=== PATIENT | female | born 1945 | race Caucasian/White ===

== ENCOUNTER 2020-05-04 13:00 | Observation (INO) ==
[2020-05-04] MEDS ORDERED: Aspirin 81 MG TAB.CHEW PO ONE (13:05)
[2020-05-04 13:15] LABS: Hematocrit 33.3 % (35.3-44.9); Hemoglobin 10.6 g/dL (11.5-15.4); Mean Corpuscular HGB Conc 31.8 g/dL (31.6-35.5); Mean Corpuscular Hemoglobin 27.5 pg (28.0-33.3); Mean Corpuscular Volume 86.3 fL (83.0-100.0); Mean Platelet Volume 9.9 fL (9.4-12.4); Platelet Count 382 K/mcL (140-400); Red Blood Count 3.86 M/mcL (3.82-4.97); Red Cell Distribution Width 14.9 % (11.5-14.5); White Blood Count 7.8 K/mcL (4.3-11.1)
[2020-05-04 13:29] LABS: Prothrombin Time 11.2 Seconds (9.4-12.1)
[2020-05-04] MEDS ORDERED: Isovue-370 500 ML BOTTLE IVP ONE (13:30)
[2020-05-04 13:31] LABS: Activated Partial Thrombo Time 31.2 Seconds (26.0-36.0)
[2020-05-04 13:32] LABS: BUN/Creatinine Ratio 20 (6-26); Blood Urea Nitrogen 23 mg/dL (8-23); Calcium 10.6 mg/dL (8.6-10.3); Carbon Dioxide 25 mEq/L (23-29); Chloride 105 mEq/L (98-107); Glucose 151 mg/dL (70-105); Osmolality,Calculated 291 (280-300); Potassium 4.1 mEq/L (3.5-5.1); Sodium 137 mEq/L (136-145); eGFR For African Americans 56 (> 60); eGFR For Non-African Americans 46 (> 60)
[2020-05-04 13:33] LABS: Troponin I < 0.03 ng/mL (< 0.04)
[2020-05-04] MEDS ORDERED: Ondansetron 4 MG/2 ML VIAL IVP ONE (13:35)
[2020-05-04] MEDS ORDERED: Ondansetron 4 MG/2 ML VIAL ONE (13:38)
[2020-05-04 14:54] LABS: Bilirubin,Urine Negative (Negative); Blood,Urine Negative (Negative); Clarity,Urine Clear (Clear); Color,Urine Colorless (Yellow); Glucose,Urine (UA) Normal (Normal); Ketones,Urine Negative (Negative); Leukocyte Esterase,Urine Negative (Negative); Nitrite,Urine Negative (Negative); PH,Urine 7.5 pH Units (5.0-8.0); Protein,Urine 30 mg/dL (Neg-Trace); Specific Gravity,Urine 1.021 (1.010-1.025); Urobilinogen,Urine Normal (Normal)
[2020-05-04 14:58] LABS: Squamous Epithelial Cell,Urine Present per hpf (None-Few)
[2020-05-04] MEDS ORDERED: Perflutren Lipid Microsphere 1.3 ML in 0.9 % Sodium Chloride 8.7 ML IVP PRN (16:46)
[2020-05-04] MEDS ORDERED: *HR* Promethazine 25 MG/ML VIAL IVP PRN (16:46)
[2020-05-04] MEDS ORDERED: Acetaminophen 325 MG TABLET PO PRN (16:46)
[2020-05-04] MEDS ORDERED: D5% in Water 1,000 ML IVC PRN (17:29)
[2020-05-04] MEDS ORDERED: *HR* Dextrose 50 % in Water (Vial) 50 ML VIAL IVP PRN (17:29)
[2020-05-04] MEDS ORDERED: Dextrose Gel 15 GM/37.5 ML TUBE PO PRN ×2 (17:29)
[2020-05-04] MEDS: Insulin LISPRO 300 UNITS/3 ML VIAL SQ SCH (17:49)
[2020-05-04] MEDS ORDERED: Insulin LISPRO 300 UNITS/3 ML VIAL SQ SCH (21:00)
[2020-05-04] MEDS: *HR* Heparin 5,000 UNIT/ML VIAL SQ SCH (21:56)
[2020-05-05 02:11] LABS: Hematocrit 30.7 % (35.3-44.9); Hemoglobin 9.9 g/dL (11.5-15.4); Mean Corpuscular HGB Conc 32.2 g/dL (31.6-35.5); Mean Corpuscular Hemoglobin 27.2 pg (28.0-33.3); Mean Corpuscular Volume 84.3 fL (83.0-100.0); Mean Platelet Volume 10.2 fL (9.4-12.4); Platelet Count 374 K/mcL (140-400); Red Blood Count 3.64 M/mcL (3.82-4.97); Red Cell Distribution Width 14.8 % (11.5-14.5); White Blood Count 8.7 K/mcL (4.3-11.1)
[2020-05-05 02:21] LABS: Prothrombin Time 11.4 Seconds (9.4-12.1)
[2020-05-05 02:44] LABS: Chol/HDL Ratio 2.6 (0-4.9)
[2020-05-05 02:46] LABS: BUN/Creatinine Ratio 21 (6-26); Blood Urea Nitrogen 19 mg/dL (8-23); Calcium 10.2 mg/dL (8.6-10.3); Carbon Dioxide 24 mEq/L (23-29); Chloride 105 mEq/L (98-107); Glucose 97 mg/dL (70-105); Osmolality,Calculated 286 (280-300); Potassium 3.4 mEq/L (3.5-5.1); Sodium 137 mEq/L (136-145); eGFR For African Americans > 60 (> 60); eGFR For Non-African Americans 59 (> 60)
[2020-05-05] MEDS: *HR* Heparin 5,000 UNIT/ML VIAL SQ SCH ×2 (05:55→15:08)
[2020-05-05 07:10] LABS: Estimated Average Glucose 137 mg/dl
[2020-05-05] MEDS: Insulin LISPRO 300 UNITS/3 ML VIAL SQ SCH ×3 (07:59→16:20)
[2020-05-05] MEDS ORDERED: Aspirin Enteric Coated 81 MG Tablet PO SCH (09:00)
[2020-05-05 15:06] VITALS: BP 167/77
== END 2020-05-05 18:43 | disposition home or self-care (01) ==
LOC: 3BNU 13:00 → EMEROOARM 13:00 → 3BNU 16:50
PROVIDERS: ADMIT Pharmacist; ATTEND Pharmacist

== ENCOUNTER 2020-05-29 18:04 | Inpatient (IN) ==
[2020-05-29] MEDS ORDERED: Isovue-370 500 ML BOTTLE IVP ONE (18:38)
[2020-05-29 19:16] LABS: Hematocrit 29.4 % (35.3-44.9); Hemoglobin 9.4 g/dL (11.5-15.4); Mean Corpuscular Hemoglobin 28.1 pg (28.0-33.3); Mean Corpuscular Volume 87.8 fL (83.0-100.0); Platelet Count 384 K/mcL (140-400); Red Blood Count 3.35 M/mcL (3.82-4.97); Red Cell Distribution Width 15.4 % (11.5-14.5); White Blood Count 8.8 K/mcL (4.3-11.1)
[2020-05-29 19:24] LABS: Prothrombin Time 11.3 Seconds (9.4-12.1)
[2020-05-29 19:27] LABS: Activated Partial Thrombo Time 29.5 Seconds (26.0-36.0)
[2020-05-29 19:41] LABS: BUN/Creatinine Ratio 15 (6-26); Blood Urea Nitrogen 15 mg/dL (8-23); Calcium 10.5 mg/dL (8.6-10.3); Carbon Dioxide 24 mEq/L (23-29); Chloride 108 mEq/L (98-107); Glucose 134 mg/dL (70-105); Osmolality,Calculated 291 (280-300); Potassium 4.2 mEq/L (3.5-5.1); Sodium 139 mEq/L (136-145); Troponin I < 0.03 ng/mL (< 0.04); eGFR For African Americans > 60 (> 60); eGFR For Non-African Americans 55 (> 60)
[2020-05-29 20:02] LABS: Bacteria,Urine Few per hpf (None-Few); Bilirubin,Urine Negative (Negative); Blood,Urine Negative (Negative); Clarity,Urine Clear (Clear); Color,Urine Colorless (Yellow); Glucose,Urine (UA) Normal (Normal); Ketones,Urine Negative (Negative); Leukocyte Esterase,Urine Negative (Negative); Mucus,Urine Few per lpf (None-Few); Nitrite,Urine Negative (Negative); PH,Urine 7.5 pH Units (5.0-8.0); Protein,Urine 50 mg/dL (Neg-Trace); RBC,Urine 0-3 per hpf (0-3); Specific Gravity,Urine 1.026 (1.010-1.025); Squamous Epithelial Cell,Urine Few per hpf (None-Few); Urobilinogen,Urine Normal (Normal); WBC,Urine 0-3 per hpf (0-3)
[2020-05-29] MEDS ORDERED: Aspirin 325 MG TABLET PO ONE (20:38)
[2020-05-29] MEDS ORDERED: Naloxone 0.4 MG/ML INJ IVP PRN (23:15)
[2020-05-29] MEDS ORDERED: Ondansetron ODT 4 MG TAB.RAPDIS SL PRN (23:15)
[2020-05-30] MEDS: *HR* Heparin 5,000 UNIT/ML VIAL SQ SCH ×3 (05:30→20:57)
[2020-05-30] MEDS ORDERED: *HR* Heparin 5,000 UNIT/ML VIAL SQ SCH (06:00)
[2020-05-30] MEDS: Aspirin Enteric Coated 81 MG Tablet PO SCH (08:19)
[2020-05-30] MEDS: amLODIPine 5 MG TABLET PO SCH (10:08)
[2020-05-30] MEDS ORDERED: Dextrose Gel 15 GM/37.5 ML TUBE PO PRN ×2 (11:22)
[2020-05-30] MEDS ORDERED: D5% in Water 1,000 ML IVC PRN (11:22)
[2020-05-30] MEDS ORDERED: *HR* Dextrose 50 % in Water (Vial) 50 ML VIAL IVP PRN (11:22)
[2020-05-30] MEDS: Insulin LISPRO 300 UNITS/3 ML VIAL SQ SCH ×2 (12:06→16:51)
[2020-05-30 18:22] LABS: Adenovirus Not Detected (Not Detect); Bordetella Pertussis Not Detected (Not Detect); Chlamydophila pneumoniae Not Detected (Not Detect); Coronavirus 229E Not Detected (Not Detect); Coronavirus HKU1 Not Detected (Not Detect); Coronavirus NL63 Not Detected (Not Detect); Coronavirus OC43 Not Detected (Not Detect); Human Metapneumovirus Not Detected (Not Detect); Human Rhinovirus/Enterovirus Not Detected (Not Detect); Influenza A Subtype 2009 H1 Not Detected (Not Detect); Influenza B Not Detected (Not Detect); Mycoplasma pneumoniae Not Detected (Not Detect); Parainfluenza Virus 1 Not Detected (Not Detect); Parainfluenza Virus 2 Not Detected (Not Detect); Parainfluenza Virus 3 Not Detected (Not Detect); Parainfluenza Virus 4 Not Detected (Not Detect); Respiratory Syncytial Virus Not Detected (Not Detect); SARS-CoV-2 Not Detected (Not Detect)
[2020-05-30] MEDS ORDERED: Insulin LISPRO 300 UNITS/3 ML VIAL SQ SCH (21:00)
[2020-05-31] MEDS: *HR* Heparin 5,000 UNIT/ML VIAL SQ SCH (04:00)
[2020-05-31] MEDS: Insulin LISPRO 300 UNITS/3 ML VIAL SQ SCH ×2 (07:57→13:46)
[2020-05-31] MEDS ORDERED: Lidocaine Viscous Oral Soln 15 ML SOLUTION MM PRN (10:47)
[2020-05-31] MEDS ORDERED: *HR* FentaNYL (PF) 100 MCG/2 ML VIAL IVP PRN (10:47)
[2020-05-31] MEDS ORDERED: 0.9 % Sodium Chloride 500 ML IVC ONE (10:48)
[2020-05-31] MEDS: *HR* Midazolam HCl 5 MG/5 ML VIAL IVP PRN ×2 (11:30→11:35)
[2020-05-31] MEDS: Aspirin Enteric Coated 81 MG Tablet PO SCH (12:44)
[2020-05-31] MEDS: amLODIPine 5 MG TABLET PO SCH (12:44)
[2020-05-31 13:59] VITALS: BP 148/82
== END 2020-05-31 15:34 | disposition home health service (06) | DRG 65 ==
LOC: EMEROOARM 18:04 → 3BNU 18:04 → SUATTDRO 21:41 → 3BNU 22:30
PROVIDERS: ADMIT Internal Medicine; ATTEND Internal Medicine

== ENCOUNTER 2020-06-07 14:52 | Observation (INO) ==
[2020-06-07 15:16] LABS: Hematocrit 30.2 % (35.3-44.9); Hemoglobin 9.9 g/dL (11.5-15.4); Mean Corpuscular HGB Conc 32.8 g/dL (31.6-35.5); Mean Corpuscular Volume 85.3 fL (83.0-100.0); Mean Platelet Volume 10.1 fL (9.4-12.4); Platelet Count 426 K/mcL (140-400); Red Blood Count 3.54 M/mcL (3.82-4.97); Red Cell Distribution Width 14.6 % (11.5-14.5)
[2020-06-07 15:33] LABS: BUN/Creatinine Ratio 18 (6-26); Blood Urea Nitrogen 16 mg/dL (8-23); Carbon Dioxide 22 mEq/L (23-29); Chloride 100 mEq/L (98-107); Glucose 201 mg/dL (70-105); Osmolality,Calculated 285 (280-300); Potassium 3.2 mEq/L (3.5-5.1); Sodium 134 mEq/L (136-145); eGFR For African Americans > 60 (> 60); eGFR For Non-African Americans > 60 (> 60)
[2020-06-07 15:34] LABS: Troponin I < 0.03 ng/mL (< 0.04)
[2020-06-07 15:35] LABS: Prothrombin Time 11.7 Seconds (9.4-12.1)
[2020-06-07 15:38] LABS: Activated Partial Thrombo Time 26.4 Seconds (26.0-36.0)
[2020-06-07] MEDS ORDERED: Isovue-370 500 ML BOTTLE IVP ONE (15:39)
[2020-06-07] MEDS ORDERED: Ondansetron 4 MG/2 ML VIAL IVP PRN (16:57)
[2020-06-07] MEDS ORDERED: Naloxone 0.4 MG/ML INJ IVP PRN (16:57)
[2020-06-07] MEDS ORDERED: Furosemide 20 MG TABLET PO PRN (17:00)
[2020-06-07] MEDS ORDERED: 0.9 % Sodium Chloride 500 ML IVC ONE (17:09)
[2020-06-07] MEDS ORDERED: Dextrose Gel 15 GM/37.5 ML TUBE PO PRN ×2 (17:38)
[2020-06-07] MEDS ORDERED: *HR* Dextrose 50 % in Water (Vial) 50 ML VIAL IVP PRN (17:38)
[2020-06-07] MEDS ORDERED: D5% in Water 1,000 ML IVC PRN (17:38)
[2020-06-07 18:10] LABS: Estimated Average Glucose 117 mg/dl
[2020-06-07 18:22] LABS: Bilirubin,Urine Negative (Negative); Blood,Urine Negative (Negative); Clarity,Urine Clear (Clear); Color,Urine Light-Yellow (Yellow); Glucose,Urine (UA) Normal (Normal); Ketones,Urine Trace mg/dL (Negative); Leukocyte Esterase,Urine Negative (Negative); Mucus,Urine Few per lpf (None-Few); Nitrite,Urine Negative (Negative); Protein,Urine 100 mg/dL (Neg-Trace); Specific Gravity,Urine > 1.030 (1.010-1.025); Squamous Epithelial Cell,Urine Few per hpf (None-Few); Urobilinogen,Urine Normal (Normal)
[2020-06-07] MEDS: Potassium Chloride Elixir 20 MEQ/15 ML UDC PO SCH (20:26)
[2020-06-07] MEDS: 0.9 % Sodium Chloride 1,000 ML IVC SCH (20:26)
[2020-06-07] MEDS: cefTRIAXone 1,000 MG in Water for inj. (sterile) 10 ML IVP SCH (20:27)
[2020-06-07] MEDS: MetroNIDAZOLE 500 MG/100 ML 500 MG/100 ML BAG IVPB SCH (20:27)
[2020-06-07] MEDS: Insulin LISPRO 300 UNITS/3 ML VIAL SQ SCH (20:35)
[2020-06-07] MEDS ORDERED: Insulin LISPRO 300 UNITS/3 ML VIAL SQ SCH (21:00)
[2020-06-08] MEDS: MetroNIDAZOLE 500 MG/100 ML 500 MG/100 ML BAG IVPB SCH ×2 (01:54→09:08)
[2020-06-08] MEDS ORDERED: Potassium Chloride Elixir 20 MEQ/15 ML UDC PO SCH (02:00)
[2020-06-08 05:32] LABS: Basophils # 0.1 K/mcL (0.0-0.2); Basophils % 0.5 %; Eosinophils # 0.1 K/mcL (0.0-0.6); Eosinophils % 0.6 %; Hematocrit 25.2 % (35.3-44.9); Immature Granulocytes % 0.6 % (0-4); Lymphocytes # 1.7 K/mcL (0.6-4.6); Lymphocytes % 15.8 %; Mean Corpuscular HGB Conc 32.1 g/dL (31.6-35.5); Mean Corpuscular Hemoglobin 27.9 pg (28.0-33.3); Mean Corpuscular Volume 86.9 fL (83.0-100.0); Mean Platelet Volume 10.1 fL (9.4-12.4); Monocytes % 9.7 %; Neutrophils # 7.7 K/mcL (1.6-8.9); Platelet Count 399 K/mcL (140-400); Red Cell Distribution Width 14.7 % (11.5-14.5); Segmented Neutrophils % 72.8 %; White Blood Count 10.5 K/mcL (4.3-11.1)
[2020-06-08 05:33] LABS: Hemoglobin 8.1 g/dL (11.5-15.4)
[2020-06-08 05:59] LABS: BUN/Creatinine Ratio 16 (6-26); Blood Urea Nitrogen 14 mg/dL (8-23); Calcium 9.4 mg/dL (8.6-10.3); Carbon Dioxide 23 mEq/L (23-29); Chloride 109 mEq/L (98-107); Glucose 133 mg/dL (70-105); Magnesium 1.7 mg/dL (1.6-2.6); Osmolality,Calculated 284 (280-300); Phosphorous 2.1 mg/dL (2.7-4.5); Potassium 4.2 mEq/L (3.5-5.1); Sodium 136 mEq/L (136-145); eGFR For African Americans > 60 (> 60); eGFR For Non-African Americans > 60 (> 60)
[2020-06-08] MEDS: Potassium Chloride Elixir 20 MEQ/15 ML UDC PO SCH (07:39)
[2020-06-08] MEDS ORDERED: Aspirin Enteric Coated 81 MG Tablet PO SCH (09:00)
[2020-06-08] MEDS: Insulin LISPRO 300 UNITS/3 ML VIAL SQ SCH (09:03)
[2020-06-08] MEDS: cefTRIAXone 1,000 MG in Water for inj. (sterile) 10 ML IVP SCH (09:11)
[2020-06-08] MEDS ORDERED: lisinopriL 20 MG TABLET PO SCH (09:15)
[2020-06-08] MEDS: 0.9 % Sodium Chloride 1,000 ML IVC SCH (10:56)
[2020-06-08 11:56] VITALS: BP 150/81
== END 2020-06-08 14:34 | disposition home health service (06) ==
LOC: EMEROOARM 14:52 → 3BNU 14:52 → SUATTDRO 17:18 → 3BNU 18:10
PROVIDERS: ADMIT Internal Medicine; ATTEND Internal Medicine

== ENCOUNTER 2020-11-09 10:59 | Inpatient (IN) ==
[2020-11-09] MEDS ORDERED: Isovue-370 500 ML BOTTLE IVP ONE (11:15)
[2020-11-09 11:45] LABS: Basophils # 0.1 K/mcL (0.0-0.2); Eosinophils # 0.1 K/mcL (0.0-0.6); Hematocrit 34.5 % (35.3-44.9); Hemoglobin 11.1 g/dL (11.5-15.4); Immature Granulocytes % 0.3 % (0-4); Lymphocytes # 1.1 K/mcL (0.6-4.6); Lymphocytes % 13.7 %; Mean Corpuscular HGB Conc 32.2 g/dL (31.6-35.5); Mean Corpuscular Hemoglobin 26.9 pg (28.0-33.3); Mean Corpuscular Volume 83.7 fL (83.0-100.0); Mean Platelet Volume 10.3 fL (9.4-12.4); Monocytes # 0.4 K/mcL (0.0-1.3); Monocytes % 5.2 %; Neutrophils # 6.1 K/mcL (1.6-8.9); Platelet Count 362 K/mcL (140-400); Red Blood Count 4.12 M/mcL (3.82-4.97); Red Cell Distribution Width 15.4 % (11.5-14.5); Segmented Neutrophils % 78.8 %; White Blood Count 7.7 K/mcL (4.3-11.1)
[2020-11-09 12:09] LABS: Alanine Aminotransferase 9 Units/L (7-52); Albumin 4.3 g/dL (3.5-5.7); Albumin/Globulin Ratio 1.4 (1.1-2.2); Alkaline Phosphatase 78 Units/L (34-104); Aspartate Amino Transferase 11 Units/L (13-39); BUN/Creatinine Ratio 16 (6-26); Bilirubin,Direct 0.1 mg/dL (0.0-0.2); Bilirubin,Indirect 0.6 mg/dL (0.0-1.0); Bilirubin,Total 0.7 mg/dL (0.3-1.0); Blood Urea Nitrogen 16 mg/dL (8-23); Calcium 10.6 mg/dL (8.6-10.3); Carbon Dioxide 22 mEq/L (23-29); Chloride 109 mEq/L (98-107); Glucose 130 mg/dL (70-105); Osmolality,Calculated 291 (280-300); Potassium 3.8 mEq/L (3.5-5.1); Sodium 139 mEq/L (136-145); Total Protein 7.3 g/dL (6.4-8.9); Troponin I < 0.03 ng/mL (< 0.04); eGFR For African Americans > 60 (> 60); eGFR For Non-African Americans 55 (> 60)
[2020-11-09 13:12] LABS: Adenovirus Not Detected (Not Detect); Bordetella Pertussis Not Detected (Not Detect); Chlamydophila pneumoniae Not Detected (Not Detect); Coronavirus 229E Not Detected (Not Detect); Coronavirus HKU1 Not Detected (Not Detect); Coronavirus NL63 Not Detected (Not Detect); Coronavirus OC43 Not Detected (Not Detect); Human Metapneumovirus Not Detected (Not Detect); Human Rhinovirus/Enterovirus Not Detected (Not Detect); Influenza A Subtype 2009 H1 Not Detected (Not Detect); Influenza B Not Detected (Not Detect); Mycoplasma pneumoniae Not Detected (Not Detect); Parainfluenza Virus 1 Not Detected (Not Detect); Parainfluenza Virus 2 Not Detected (Not Detect); Parainfluenza Virus 3 Not Detected (Not Detect); Parainfluenza Virus 4 Not Detected (Not Detect); Respiratory Syncytial Virus Not Detected (Not Detect); SARS-CoV-2 Not Detected (Not Detect)
[2020-11-09] MEDS ORDERED: Aspirin 81 MG TAB.CHEW PO STA (13:33)
[2020-11-09 14:10] LABS: Bilirubin,Urine Negative (Negative); Blood,Urine Negative (Negative); Clarity,Urine Clear (Clear); Color,Urine Colorless (Yellow); Glucose,Urine (UA) Normal (Normal); Ketones,Urine Negative (Negative); Leukocyte Esterase,Urine Negative (Negative); Nitrite,Urine Negative (Negative); Protein,Urine 30 mg/dL (Neg-Trace); RBC,Urine 0-3 per hpf (0-3); Specific Gravity,Urine 1.027 (1.010-1.025); Squamous Epithelial Cell,Urine Few per hpf (None-Few); Urobilinogen,Urine Normal (Normal); WBC,Urine 0-3 per hpf (0-3)
[2020-11-09] MEDS ORDERED: MOM Conc 10 ML UD.LIQ PO PRN (15:18)
[2020-11-09] MEDS ORDERED: Ondansetron ODT 4 MG TAB.RAPDIS SL PRN (15:18)
[2020-11-09] MEDS ORDERED: Mag Hydrox/Al Hydrox/Simeth 30 ML UDC PO PRN (15:18)
[2020-11-09] MEDS ORDERED: Melatonin 3 MG TABLET PO PRN (15:18)
[2020-11-09] MEDS ORDERED: Naloxone 0.4 MG/ML INJ IVP PRN (15:18)
[2020-11-09] MEDS ORDERED: D5% in Water 1,000 ML IVC PRN (15:23)
[2020-11-09] MEDS ORDERED: Dextrose Gel 15 GM/37.5 ML TUBE PO PRN ×2 (15:23)
[2020-11-09] MEDS ORDERED: *HR* Dextrose 50 % in Water (Vial) 50 ML VIAL IVP PRN (15:23)
[2020-11-09] MEDS ORDERED: Perflutren Lipid Microsphere 1.3 ML in 0.9 % Sodium Chloride 8.7 ML IVP PRN (15:25)
[2020-11-09] MEDS: Insulin LISPRO 300 UNITS/3 ML VIAL SUBQ SCH ×2 (16:39→19:40)
[2020-11-10 06:09] LABS: Hemoglobin 10.9 g/dL (11.5-15.4); Mean Corpuscular Hemoglobin 27.6 pg (28.0-33.3); Mean Corpuscular Volume 83.5 fL (83.0-100.0); Mean Platelet Volume 10.3 fL (9.4-12.4); Platelet Count 341 K/mcL (140-400); Red Blood Count 3.95 M/mcL (3.82-4.97); Red Cell Distribution Width 15.5 % (11.5-14.5); White Blood Count 7.6 K/mcL (4.3-11.1)
[2020-11-10 06:16] LABS: Estimated Average Glucose 140 mg/dl; Hemoglobin A1C 6.5 %; Prothrombin Time 11.7 Seconds (9.4-12.1)
[2020-11-10 06:29] LABS: Alanine Aminotransferase 8 Units/L (7-52); Albumin 3.9 g/dL (3.5-5.7); Albumin/Globulin Ratio 1.4 (1.1-2.2); Alkaline Phosphatase 73 Units/L (34-104); Aspartate Amino Transferase 11 Units/L (13-39); BUN/Creatinine Ratio 20 (6-26); Bilirubin,Total 0.6 mg/dL (0.3-1.0); Blood Urea Nitrogen 18 mg/dL (8-23); Calcium 10.4 mg/dL (8.6-10.3); Carbon Dioxide 24 mEq/L (23-29); Chloride 106 mEq/L (98-107); Chol/HDL Ratio 2.1 (0-4.9); Cholesterol 143 mg/dL (< 200); Globulin 2.7 g/dL (2.4-3.5); Glucose 104 mg/dL (70-105); HDL Cholesterol 69 mg/dL (40-59); LDL Cholesterol,Calculated 59 mg/dL (< 100); Osmolality,Calculated 286 (280-300); Potassium 3.4 mEq/L (3.5-5.1); Sodium 137 mEq/L (136-145); Total Protein 6.6 g/dL (6.4-8.9); Triglycerides 74 mg/dL (< 150); Troponin I < 0.03 ng/mL (< 0.04); eGFR For African Americans > 60 (> 60); eGFR For Non-African Americans > 60 (> 60)
[2020-11-10] MEDS: Insulin LISPRO 300 UNITS/3 ML VIAL SUBQ SCH ×4 (07:14→20:29)
[2020-11-10] MEDS ORDERED: E-Z-HD (BARIUM SULF) SUSPENSION PO ONE (08:43)
[2020-11-10] MEDS ORDERED: E-Z-PAQUE (BARIUM SULF) SUSP 1 BOTTLE PO ONE (08:43)
[2020-11-10] MEDS ORDERED: Simethicone/Sodium Bic/Citr Ac 1 EACH GRAN.EF.PK PO ONE (08:43)
[2020-11-10] MEDS: Aspirin 81 MG TAB.CHEW PO SCH (13:31)
[2020-11-11] MEDS: Insulin LISPRO 300 UNITS/3 ML VIAL SUBQ SCH ×4 (08:58→19:57)
[2020-11-11] MEDS: amLODIPine 5 MG TABLET PO SCH (09:37)
[2020-11-11] MEDS: Aspirin 81 MG TAB.CHEW PO SCH (09:37)
[2020-11-11] MEDS: lisinopriL 20 MG TABLET PO SCH (09:37)
[2020-11-12] MEDS: Insulin LISPRO 300 UNITS/3 ML VIAL SUBQ SCH ×2 (07:41→11:47)
[2020-11-12] MEDS: amLODIPine 5 MG TABLET PO SCH (07:46)
[2020-11-12] MEDS: Aspirin 81 MG TAB.CHEW PO SCH (07:46)
[2020-11-12] MEDS: lisinopriL 20 MG TABLET PO SCH (07:46)
[2020-11-12 11:24] VITALS: BP 130/74
[2020-11-12 11:41] LABS: Hematocrit 31.7 % (35.3-44.9); Hemoglobin 10.4 g/dL (11.5-15.4)
== END 2020-11-12 13:33 | disposition other institution (70) | DRG 65 ==
LOC: EMEROOARM 10:59 → 3BNU 10:59 → SUATTDRO 14:11 → 3BNU 15:13
PROVIDERS: ADMIT Internal Medicine; ATTEND Registered Nurse

== ENCOUNTER 2021-01-19 15:28 | Inpatient (IN) ==
[2021-01-19 16:09] LABS: Basophils # 0.1 K/mcL (0.0-0.2); Basophils % 0.3 %; Eosinophils % 0.2 %; Hematocrit 37.6 % (35.3-44.9); Hemoglobin 11.8 g/dL (11.5-15.4); Immature Granulocytes % 0.4 % (0-4); Lymphocytes # 1.3 K/mcL (0.6-4.6); Lymphocytes % 6.9 %; Mean Corpuscular HGB Conc 31.4 g/dL (31.6-35.5); Mean Corpuscular Hemoglobin 26.9 pg (28.0-33.3); Mean Corpuscular Volume 85.8 fL (83.0-100.0); Monocytes # 0.6 K/mcL (0.0-1.3); Monocytes % 3.1 %; Neutrophils # 16.1 K/mcL (1.6-8.9); Platelet Count 601 K/mcL (140-400); Red Blood Count 4.38 M/mcL (3.82-4.97); Red Cell Distribution Width 15.1 % (11.5-14.5); Segmented Neutrophils % 89.1 %; White Blood Count 18.1 K/mcL (4.3-11.1)
[2021-01-19 16:16] LABS: INR 0.9; Prothrombin Time 10.4 Seconds (9.4-12.1)
[2021-01-19 16:18] LABS: Activated Partial Thrombo Time 26.8 Seconds (26.0-36.0)
[2021-01-19] MEDS ORDERED: 0.9 % Sodium Chloride 1,000 ML IVC ONE (16:21)
[2021-01-19 16:24] LABS: Alanine Aminotransferase 15 Units/L (7-52); Albumin 3.9 g/dL (3.5-5.7); Albumin/Globulin Ratio 1.3 (1.1-2.2); Alkaline Phosphatase 96 Units/L (34-104); Aspartate Amino Transferase 18 Units/L (13-39); BUN/Creatinine Ratio 46 (6-26); Bilirubin,Direct 0.1 mg/dL (0.0-0.2); Bilirubin,Indirect 0.5 mg/dL (0.0-1.0); Bilirubin,Total 0.6 mg/dL (0.3-1.0); Blood Urea Nitrogen 43 mg/dL (8-23); Carbon Dioxide 22 mEq/L (23-29); Chloride 105 mEq/L (98-107); Creatine Kinase 45 Units/L (30-223); Ethanol < 10 mg/dL (Less than 10); Globulin 2.9 g/dL (2.4-3.5); Glucose 172 mg/dL (70-105); Osmolality,Calculated 309 (280-300); Potassium 3.4 mEq/L (3.5-5.1); Sodium 142 mEq/L (136-145); Total Protein 6.8 g/dL (6.4-8.9); Troponin I < 0.03 ng/mL (< 0.04); eGFR For African Americans > 60 (> 60); eGFR For Non-African Americans 58 (> 60)
[2021-01-19 16:37] LABS: Thyroid Stimulating Hormone 1.054 mcIU/mL (0.340-5.600)
[2021-01-19 17:06] LABS: Amphetamine Screen,Urine Negative ng/mL (Cutoff=1000); Barbiturate Screen,Urine Negative ng/mL (Cutoff=200); Benzodiazepines Screen,Urine Negative ng/mL (Cutoff=200); Cannabinoid Screen,Urine Negative ng/mL (Cutoff = 50); Cocaine Screen,Urine Negative ng/mL (Cutoff= 300); Opiate Screen,Urine Negative ng/mL (Cutoff=300); Phencyclidine Screen,Urine Negative ng/mL (Cutoff=25)
[2021-01-19 17:06] LABS: Bilirubin,Urine Negative (Negative); Blood,Urine Large (Negative); Clarity,Urine Turbid (Clear); Color,Urine Light-Orange (Yellow); Glucose,Urine (UA) Normal (Normal); Ketones,Urine 20 mg/dL (Negative); Leukocyte Esterase,Urine Large (Negative); Nitrite,Urine Negative (Negative); Protein,Urine >=300 mg/dL (Neg-Trace); Urobilinogen,Urine Normal (Normal)
[2021-01-19 17:11] LABS: Bacteria,Urine Present per hpf (None-Few); RBC,Urine Present per hpf (0-3); Squamous Epithelial Cell,Urine Present per hpf (None-Few); WBC,Urine Present per hpf (0-3)
[2021-01-19] MEDS ORDERED: cefTRIAXone 1,000 MG in Water for inj. (sterile) 10 ML IVP ONE (17:17)
[2021-01-19] MEDS ORDERED: Naloxone 0.4 MG/ML INJ IVP PRN (21:10)
[2021-01-19] MEDS ORDERED: Melatonin 3 MG TABLET PO PRN (21:10)
[2021-01-19] MEDS ORDERED: Ondansetron 4 MG/2 ML VIAL IVP PRN (21:10)
[2021-01-19] MEDS ORDERED: Potassium Chloride 40 MEQ, Lidocaine 1% 2 ML in 0.9 % Sodium Chloride 500 ML IVPB ONE (23:18)
[2021-01-20 02:41] LABS: Basophils # 0.1 K/mcL (0.0-0.2); Basophils % 0.5 %; Eosinophils % 0.2 %; Hematocrit 30.4 % (35.3-44.9); Hemoglobin 9.8 g/dL (11.5-15.4); Immature Granulocytes % 0.4 % (0-4); Lymphocytes # 1.6 K/mcL (0.6-4.6); Lymphocytes % 11.8 %; Mean Corpuscular HGB Conc 32.2 g/dL (31.6-35.5); Mean Corpuscular Hemoglobin 27.8 pg (28.0-33.3); Mean Corpuscular Volume 86.4 fL (83.0-100.0); Mean Platelet Volume 10.3 fL (9.4-12.4); Monocytes # 0.6 K/mcL (0.0-1.3); Monocytes % 4.1 %; Neutrophils # 11.4 K/mcL (1.6-8.9); Platelet Count 516 K/mcL (140-400); Red Blood Count 3.52 M/mcL (3.82-4.97); Red Cell Distribution Width 15.4 % (11.5-14.5); White Blood Count 13.7 K/mcL (4.3-11.1)
[2021-01-20 03:03] LABS: Prothrombin Time 11.1 Seconds (9.4-12.1)
[2021-01-20 03:06] LABS: Alanine Aminotransferase 14 Units/L (7-52); Albumin 3.4 g/dL (3.5-5.7); Albumin/Globulin Ratio 1.3 (1.1-2.2); Alkaline Phosphatase 74 Units/L (34-104); Aspartate Amino Transferase 17 Units/L (13-39); BUN/Creatinine Ratio 44 (6-26); Bilirubin,Total 0.4 mg/dL (0.3-1.0); Blood Urea Nitrogen 38 mg/dL (8-23); Calcium 10.2 mg/dL (8.6-10.3); Carbon Dioxide 19 mEq/L (23-29); Chloride 111 mEq/L (98-107); Chol/HDL Ratio 2.4 (0-4.9); Cholesterol 107 mg/dL (< 200); Globulin 2.7 g/dL (2.4-3.5); Glucose 131 mg/dL (70-105); HDL Cholesterol 44 mg/dL (40-59); LDL Cholesterol,Calculated 49 mg/dL (< 100); Osmolality,Calculated 307 (280-300); Phosphorous 2.8 mg/dL (2.7-4.5); Potassium 3.4 mEq/L (3.5-5.1); Sodium 143 mEq/L (136-145); Total Protein 6.1 g/dL (6.4-8.9); Triglycerides 71 mg/dL (< 150); Troponin I < 0.03 ng/mL (< 0.04); eGFR For African Americans > 60 (> 60); eGFR For Non-African Americans > 60 (> 60)
[2021-01-20 03:12] LABS: Estimated Average Glucose 126 mg/dl
[2021-01-20] MEDS: cefTRIAXone 1,000 MG in Water for inj. (sterile) 10 ML IVP SCH (09:55)
[2021-01-20] MEDS: lisinopriL 20 MG TABLET PO SCH (09:58)
[2021-01-20] MEDS: amLODIPine 5 MG TABLET PO SCH (09:58)
[2021-01-20] MEDS: Baclofen 10 MG TABLET PO SCH ×2 (09:58→22:06)
[2021-01-20] MEDS: Aspirin 81 MG TAB.CHEW PO SCH (09:58)
[2021-01-20] MEDS: Acetaminophen 325 MG TABLET PO PRN (16:42)
[2021-01-20] MEDS ORDERED: Ketorolac 30 MG/ML VIAL IVP ONE (21:14)
[2021-01-21] MEDS: Acetaminophen 325 MG TABLET PO PRN ×2 (02:35→08:37)
[2021-01-21 03:21] LABS: Hematocrit 31.3 % (35.3-44.9); Hemoglobin 9.6 g/dL (11.5-15.4); Mean Corpuscular HGB Conc 30.7 g/dL (31.6-35.5); Mean Corpuscular Hemoglobin 27.3 pg (28.0-33.3); Mean Corpuscular Volume 88.9 fL (83.0-100.0); Mean Platelet Volume 10.4 fL (9.4-12.4); Platelet Count 467 K/mcL (140-400); Red Blood Count 3.52 M/mcL (3.82-4.97); Red Cell Distribution Width 15.7 % (11.5-14.5); White Blood Count 15.2 K/mcL (4.3-11.1)
[2021-01-21 03:45] LABS: BUN/Creatinine Ratio 42 (6-26); Blood Urea Nitrogen 37 mg/dL (8-23); Calcium 10.6 mg/dL (8.6-10.3); Carbon Dioxide 22 mEq/L (23-29); Chloride 114 mEq/L (98-107); Glucose 156 mg/dL (70-105); Osmolality,Calculated 310 (280-300); Potassium 3.3 mEq/L (3.5-5.1); Sodium 144 mEq/L (136-145); eGFR For African Americans > 60 (> 60); eGFR For Non-African Americans > 60 (> 60)
[2021-01-21] MEDS: Aspirin 81 MG TAB.CHEW PO SCH (08:36)
[2021-01-21] MEDS: amLODIPine 5 MG TABLET PO SCH (08:36)
[2021-01-21] MEDS: lisinopriL 20 MG TABLET PO SCH (08:36)
[2021-01-21] MEDS: Baclofen 10 MG TABLET PO SCH ×2 (08:36→22:16)
[2021-01-21] MEDS: cefTRIAXone 1,000 MG in Water for inj. (sterile) 10 ML IVP SCH (08:37)
[2021-01-21 15:44] LABS: Folate 5.3 ng/mL (3.0-16.0)
[2021-01-21] MEDS ORDERED: Acetaminophen IV 1,000 MG/100 ML BAG IVPB ONE (17:58)
[2021-01-21] MEDS ORDERED: 0.9 % Sodium Chloride 1,000 ML IVC SCH (18:00)
[2021-01-21] MEDS ORDERED: Ketorolac 30 MG/ML VIAL IVP ONE (20:44)
[2021-01-22 01:40] LABS: Hematocrit 31.3 % (35.3-44.9); Hemoglobin 10.1 g/dL (11.5-15.4); Mean Corpuscular HGB Conc 32.3 g/dL (31.6-35.5); Mean Corpuscular Hemoglobin 27.6 pg (28.0-33.3); Mean Corpuscular Volume 85.5 fL (83.0-100.0); Mean Platelet Volume 10.3 fL (9.4-12.4); Platelet Count 393 K/mcL (140-400); Red Blood Count 3.66 M/mcL (3.82-4.97); Red Cell Distribution Width 15.4 % (11.5-14.5); White Blood Count 10.3 K/mcL (4.3-11.1)
[2021-01-22 01:57] LABS: BUN/Creatinine Ratio 42 (6-26); Blood Urea Nitrogen 30 mg/dL (8-23); Calcium 10.2 mg/dL (8.6-10.3); Carbon Dioxide 22 mEq/L (23-29); Chloride 116 mEq/L (98-107); Glucose 113 mg/dL (70-105); Osmolality,Calculated 305 (280-300); Potassium 3.6 mEq/L (3.5-5.1); Sodium 144 mEq/L (136-145); eGFR For African Americans > 60 (> 60); eGFR For Non-African Americans > 60 (> 60)
[2021-01-22] MEDS: Acetaminophen 325 MG TABLET PO PRN ×2 (09:22→22:59)
[2021-01-22] MEDS: Aspirin 81 MG TAB.CHEW PO SCH (09:23)
[2021-01-22] MEDS: amLODIPine 5 MG TABLET PO SCH (09:24)
[2021-01-22] MEDS: lisinopriL 20 MG TABLET PO SCH (09:24)
[2021-01-22] MEDS: cefTRIAXone 1,000 MG in Water for inj. (sterile) 10 ML IVP SCH (09:24)
[2021-01-22] MEDS: Baclofen 10 MG TABLET PO SCH ×2 (09:25→22:59)
[2021-01-22] MEDS ORDERED: Ketorolac 15 MG/ML VIAL IVP ONE (12:30)
[2021-01-23] MEDS: cefTRIAXone 1,000 MG in Water for inj. (sterile) 10 ML IVP SCH (09:09)
[2021-01-23] MEDS: Aspirin 81 MG TAB.CHEW PO SCH (09:10)
[2021-01-23] MEDS: Baclofen 10 MG TABLET PO SCH ×2 (09:10→21:17)
[2021-01-23] MEDS: amLODIPine 5 MG TABLET PO SCH (09:11)
[2021-01-23] MEDS: lisinopriL 20 MG TABLET PO SCH (09:11)
[2021-01-23] MEDS: Acetaminophen 325 MG TABLET PO PRN (14:09)
[2021-01-24] MEDS: lisinopriL 20 MG TABLET PO SCH (08:53)
[2021-01-24] MEDS: amLODIPine 5 MG TABLET PO SCH (08:53)
[2021-01-24] MEDS: Aspirin 81 MG TAB.CHEW PO SCH (08:53)
[2021-01-24] MEDS: Baclofen 10 MG TABLET PO SCH ×2 (08:54→20:23)
[2021-01-25] MEDS: amLODIPine 5 MG TABLET PO SCH (09:31)
[2021-01-25] MEDS: Baclofen 10 MG TABLET PO SCH ×2 (09:31→21:43)
[2021-01-25] MEDS: Aspirin 81 MG TAB.CHEW PO SCH (09:31)
[2021-01-25] MEDS: lisinopriL 20 MG TABLET PO SCH (09:32)
[2021-01-25] MEDS ORDERED: E-Z-PAQUE (BARIUM SULF) SUSP 1 BOTTLE PO ONE (12:14)
[2021-01-25] MEDS ORDERED: E-Z-HD (BARIUM SULF) SUSPENSION PO ONE (12:14)
[2021-01-25] MEDS: Acetaminophen 325 MG TABLET PO PRN (14:27)
[2021-01-26] MEDS: Aspirin 81 MG TAB.CHEW PO SCH (10:14)
[2021-01-26] MEDS: lisinopriL 20 MG TABLET PO SCH (10:14)
[2021-01-26] MEDS: amLODIPine 5 MG TABLET PO SCH (10:15)
[2021-01-26] MEDS: Baclofen 10 MG TABLET PO SCH ×2 (10:15→20:46)
[2021-01-27] MEDS: Aspirin 81 MG TAB.CHEW PO SCH (10:02)
[2021-01-27] MEDS: amLODIPine 5 MG TABLET PO SCH (10:02)
[2021-01-27] MEDS: lisinopriL 20 MG TABLET PO SCH (10:03)
[2021-01-27] MEDS: Baclofen 10 MG TABLET PO SCH ×2 (10:03→21:05)
[2021-01-27] MEDS: Acetaminophen 325 MG TABLET PO PRN (12:51)
[2021-01-28] MEDS: lisinopriL 20 MG TABLET PO SCH (09:04)
[2021-01-28] MEDS: Aspirin 81 MG TAB.CHEW PO SCH (09:04)
[2021-01-28] MEDS: amLODIPine 5 MG TABLET PO SCH (09:04)
[2021-01-28] MEDS: Baclofen 10 MG TABLET PO SCH ×2 (09:05→20:41)
[2021-01-29] MEDS: Baclofen 10 MG TABLET PO SCH (08:54)
[2021-01-29] MEDS: lisinopriL 20 MG TABLET PO SCH (08:55)
[2021-01-29] MEDS: Aspirin 81 MG TAB.CHEW PO SCH (08:55)
[2021-01-29] MEDS: amLODIPine 5 MG TABLET PO SCH (08:55)
[2021-01-29 11:41] VITALS: BP 105/67
== END 2021-01-29 12:51 | disposition hospice, home (50) | DRG 689 ==
LOC: 3ANU 15:28 → EMEROOARM 15:28 → SUATTDRO 19:12 → 3ANU 20:20 → SUATTDRO 01-21 14:13
PROVIDERS: ADMIT Internal Medicine; ATTEND Internal Medicine